=== PATIENT | female | born 1995 | race Two or more races ===

== ENCOUNTER 2016-11-19 11:04 | Emergency (ER) | payer BC ==
[2016-11-19 11:59] LABS: BACTERIA, URINE RARE /hpf; BLOOD, URINE NEG (NEG); COMMENT (UR) CULT NOT INDICATED; CULTURE IF INDICATED CULT NOT INDICATED; GLUCOSE,URINE NEG (NEG); KETONE, URINE NEG (NEG); MUCUS URINE FEW /lpf (OCC); NITRITE,URINE NEG (NEG); PH, URINE 6.5 (5.0-8.5); SQUAMOUS EPITHELIAL CELL URINE 3 /hpf (0-5); URINE COLOR YELLOW (YELLW/STRAW)
--- NOTE | 2016-11-19 11:59 | PD ---
HPI Chief Complaint Abdominal pain Date Seen: Nov 19, 2016 Time Seen: 11:45 Travel History International Travel<30 Days: No Contact w/Intl Traveler<30Days: No Known Affected Area: No History of Present Illness HPI 21-year-old primigravida at 26 weeks and 2 days gestation with an EDC of February 25. She reports having abdominal pain starting last night which has today caused her to seek evaluation. She describes this as a lightning bolt pain in the area of her belly button extending down towards her pubic bone. She denies any vaginal discharge or bleeding and no leakage of fluid. She has no dysuria hematuria or frequency. No diarrhea, constipation, nausea or vomiting. She has not noticed decreasing pain with hydration orally. She has not found anything that makes the pain worse. Weeks Gestation: 26 Para: 0 : 1 Miscarriage: 0 : 0 History Past Medical History Narrative Medical History of asthma for which she takes albuterol and Symbicort Obstetric History Obstetric History Primigravida with an uncomplicated so far. She receives care from Dr. Champion. Past Surgical History Narrative Surgical Tonsillectomy Family History Family History: Negative Social History Alcohol Use: No Tobacco Use: No Substance Abuse: No Review of Systems Except as stated in HPI: all other systems reviewed are Neg Physical Exam Narrative GENERAL: Well-nourished, well-developed patient. SKIN: Warm and dry. HEAD: Normocephalic and atraumatic. EYES: No scleral icterus. No injection or drainage. ENT: No nasal drainage noted. Mucous membranes pink. Airway patent. NECK: Supple, trachea midline. No JVD. CARDIOVASCULAR: Regular rate and rhythm without murmurs, gallops, or rubs. RESPIRATORY: Breath sounds equal bilaterally. No accessory muscle use. ABDOMEN/GI: Abdomen soft, non-tender, bowel sounds present, no rebound, no guarding Gravid to [-] weeks size Fundal Height: [26-] GENITOURINARY: External Genitalia: intact and normal in appearance BUS glands: [-Negative] Cervix: [-] Dilatation: [Closed-] Effacement: [-Long] Station: [High-] Presentation: [-] Membranes: [intact ] Uterine Contractions: [-Every 3 mild] FHT's: Category: [1-] Baseline: [-] Reactive: [-Yes] Variability: [-] Decels: [-] EXTREMITIES: No cyanosis or edema. BACK: Nontender without obvious deformity. No CVA tenderness. NEUROLOGICAL: Awake and alert. Motor and sensory grossly within normal limits. Five out of 5 muscle strength in all muscle groups. Normal speech. Data Data Vital Signs Reviewed: Yes Orders Orders Vital Signs (Adult) .ON ADMISSION (11/19/16 11:46) ^ Labor Status (11/19/16 11:46) Urinalysis - C+S If Indicated (11/19/16 11:46) Fibronectin (11/19/16 11:46) MDM Medical Record Reviewed: Yes Narrative Course / MDM Assessment: 26+ week primigravida with abdominal pain and mild uterine contractions. Plan: fibronectin, urinalysis, by mouth hydration Addendum: Her fibronectin was negative and urinalysis was not indicated for culture. Her uterine irritability diminished with by mouth hydration and she was discharged home in stable condition. Diagnosis Diagnosis: Primary Impression: 26 weeks gestation of Additional Impression: Irregular uterine contractions Disposition: DISCHARGE HOME Condition: Good Dawit Escobar MD Nov 19, 2016 11:59
== END 2016-11-19 12:53 | disposition home or self-care (01) ==
LOC: HOBED 11:04
DX: O26.892 Other specified pregnancy related conditions, second trimester (principal); R10.9 Unspecified abdominal pain; Z3A.26 26 weeks gestation of pregnancy
CPT/HCPCS: 81001; 82731; 99283

== ENCOUNTER 2017-02-01 12:34 | Inpatient (IN) | payer BC ==
[2017-02-01] VITALS (74 sets, daily range): BP systolic 108–145; BP diastolic 62–92; PULSE 61–117; RESP 18; TEMP 98.2
[~2017-02-01] VITALS: Ht 160 cm; Wt 79.0 kg
[2017-02-01] MEDS: LACTATED RINGER'S 1000 ML INJ 1,000 ML IV SCH ×2 (14:10→20:19)
--- NOTE | 2017-02-01 14:19 | PD ---
History of Present Illness History of Present Illness OB NST report Indications: IUP at 36 weeks, elevated blood pressure heart rate baseline in the 120s with moderate long-term variability, good accelerations, and no decelerations noted. The heart tones are reassuring and appropriate for gestational age with a reactive NST and category 1 heart rate tracing. Follow-up: We will admit and continue monitoring Final diagnosis: IUP at 36 weeks, suspected preeclampsia. Izabella Wetzel MD Feb 01, 2017 14:19
--- NOTE | 2017-02-01 14:20 | PD ---
HPI Chief Complaint Elevated blood pressure in the office Travel History International Travel<30 Days: No Contact w/Intl Traveler<30Days: No Known Affected Area: No History of Present Illness HPI 21-year-old , IUP at 36.5 care, complicated by asthma The patient presents for blood pressure evaluation reporting elevated blood pressures in the office, although she does not know what her office blood pressure was. She reports she has had intermittent visual changes with spots over the past 2 months. She denies any headache or visual changes at this time. She denies any right upper quadrant or epigastric pain. She reports some irregular menstrual type cramps but has not been timing the frequency. She denies any leaking of fluid or vaginal bleeding. She reports good movement. Weeks Gestation: 36 Para: 0 : 1 History Past Medical History Narrative Medical Asthma Obstetric History Obstetric History Past Surgical History Narrative Surgical Tonsillectomy, wisdom teeth extraction Family History Narrative Family History Patient is adopted Social History Alcohol Use: No Tobacco Use: No Substance Abuse: No Allergies-Medications (Allergen,Severity, Reaction): Coded Allergies: No Known Allergies (Verified Allergy, Unknown, 02/01/17) Home Meds Reported Medications Budesonide-Formoterol Inh (Symbicort Inh) 80-4.5 Mcg/Act Aero, 2 PUFF INH Q12HR for Asthma Management, #1 INHALER 0 Refills 02/01/17 Montelukast (Singulair) 4 Mg Chew, 4 MG CHEW HS, #30 TAB 0 Refills 02/01/17 Albuterol 18 GM Inh (Ventolin Hfa 18 GM Inh) 90 Mcg/Act Aer, 2 PUFF INH Q6H Y for SHORTNESS OF BREATH, #1 INHALER 0 Refills 02/01/17 Vit-Iron Carbonyl ( Plus Iron 29-1 mg) 29 Mg Iron-1 Mg Tab, 1 TAB PO DAILY for Nutritional Supplement, #30 TAB 0 Refills 02/01/17 Review of Systems Except as stated in HPI: all other systems reviewed are Neg General / Constitutional: No: Fever, Weight Gain, Weight Loss, Chills, Other Eyes: Visual changes (the patient reports seeing spots over the past 2 months, although she denies any at this time), No: Diploplia, Blurred Vision, Pain, Photophobia, Other HENT: No: Headaches, Vertigo, Dental Difficulties, Lightheadedness, Other Cardiovascular: No: Irregular Rhythm, Chest Pain or Discomfort, Palpitations, Tachycardia, Syncope, Varicosities, Edema, Cyanosis, Other Respiratory: No: Cough, Short of Breath, Wheezing, Other Gastrointestinal: No: Nausea, Vomiting, Diarrhea, Abdominal Pain, Hematemesis, Hematochezia, Constipation, Changes in Bowel Habits, Indigestion, Loss of Appetite, Other Genitourinary: No: Urgency, Frequency, Dysuria, Nocturia, Hematuria, Decreased Urinary Output, Oliguria, Hesitancy, Dribbling, Incontinence, Pelvic Pain, Dyspareunia, Discharge, Menorrhagia, Vaginal Bleeding, Other Musculoskeletal: No: Limited ROM, Weakness, Cramping, Edema, Pain, Other Skin: No Rash, No Itching, No Dryness, No Lumps, No Change in Pigmentation, No Change in Nails, No Alopecia, No Lesions, No Breast Lumps, No Breast Tenderness , No Breast Swelling, No Other Neurologic: No: Weakness, Dizziness, Syncope, Focal Abnormalities, Coordination Problem, Headache, Slurred Speech, Seizures, Other Psychiatric: No: Anxiety, Depression, Suicidal Ideations, Disorder of Thought, Mood Disorder, Substance Abuse, Homicidal Ideation, Other Endocrine: No: Heat Intolerance, Cold Intolerance, Polydipsia, Polyuria, Other Hematologic/Lymphatic: No Easy Bruising, No Lymph Node Enlargement, No Other Physical Exam Narrative GENERAL: Well-nourished, well-developed patient. SKIN: Warm and dry. HEAD: Normocephalic and atraumatic. EYES: No scleral icterus. No injection or drainage. ENT: No nasal drainage noted. Mucous membranes pink. Airway patent. NECK: Supple, trachea midline. No JVD. CARDIOVASCULAR: Regular rate and rhythm without murmurs, gallops, or rubs. RESPIRATORY: Breath sounds equal bilaterally. No accessory muscle use. BREASTS: deferred ABDOMEN/GI: Abdomen soft, non-tender, bowel sounds present, no rebound, no guarding Gravid GENITOURINARY: External Genitalia: intact and normal in appearance. Normal BUS glands. Physiologic discharge noted. Grossly normal rugae. No cervical or vaginal masses appreciated. SVE 1/80/-2. Uterine contractions every 2-3 minutes were noted but the patient is not feeling all of these FHT's: heart tones are in the 120s with moderate long-term variability, good accelerations, no decelerations noted. The patient is a reactive NST and a category 1 heart rate tracing EXTREMITIES: No cyanosis or edema. BACK: Nontender without obvious deformity. NEUROLOGICAL: Awake and alert. Motor and sensory grossly within normal limits. Five out of 5 muscle strength in all muscle groups. Normal speech. DTR are 2+ with one beat of clonus. Musculoskeletal: Grossly normal range of motion, gait, muscle strength Psychiatric: Grossly normal memory and affect Data Data Orders Orders Vital Signs (Adult) .ON ADMISSION (02/01/17 14:16) ^ Labor Status (02/01/17 14:16) Urinalysis - C+S If Indicated (02/01/17 14:16) Diet Liquid (02/01/17 Dinner) Cbc No Diff, Includes Plts (02/01/17 14:16) Comprehensive Metabolic Panel (02/01/17 14:16) Uric Acid (02/01/17 14:16) Protein Creat Ratio, Random Ur (02/01/17 14:16) MDM Plan Assessment/plan: 1. IUP at 36.5 2. Suspected preeclampsia: Patient with labile blood pressures, but with platelet count of 146,000, 100 mg protein in her urine, and a protein creatinine ratio of 1.56. The patient was discussed with Dr. Champion including laboratory findings and one beat of clonus; Dr. Champion would like to admit the patient for 24-hour urine and further observation and evaluation with possible induction of labor to follow. Discussed the plan for admission, further evaluation/observation, and possible induction with the patient. Answered all the patient's questions and she is aware that her care will be transferred to Dr. Champion. 3. well-being: Reassuring testing with reactive NST and a category 1 heart rate tracing. heart rate tracing is reassuring and appropriate for gestational age. We will continue with continuous monitoring. 4. Maternal asthma: No issues 5. Prematurity: Will Rx Celestone to help with lung maturity Izabella Wetzel MD Feb 01, 2017 14:20
[2017-02-01 14:34] LABS: HEMATOCRIT 31.8 % (35.0-46.0); MEAN CELL VOLUME 74.1 FL (80.0-100.0); MEAN CORPUSCULAR HEMOGLOBIN 25.2 PG (27.0-34.0); MEAN CORPUSCULAR HGB CONC 33.9 % (32.0-36.0); PLATELET COUNT 146 TH/MM3 (150-450); RED CELL DISTRIBUTION WIDTH 14.9 % (11.6-17.2); REVIEW FLAG FINAL; WHITE BLOOD COUNT 12.6 TH/MM3 (4.0-11.0)
[2017-02-01] MEDS ORDERED: LACTATED RINGER'S 1000 ML INJ 500 ML IV ONE (14:36)
[2017-02-01 14:45] LABS: BACTERIA, URINE RARE /hpf; BLOOD, URINE TRACE (NEG); GLUCOSE,URINE NEG (NEG); HYALINE CAST, URINE 1 /lpf (RARE); KETONE, URINE NEG (NEG); MUCUS URINE FEW /lpf (OCC); NITRITE,URINE NEG (NEG); SQUAMOUS EPITHELIAL CELL URINE 2 /hpf (0-5); URINE COLOR YELLOW (YELLW/STRAW)
[2017-02-01 14:46] LABS: COMMENT (UR) CULT NOT INDICATED; CULTURE IF INDICATED CULT NOT INDICATED
[2017-02-01 14:53] LABS: ANION GAP 11 MEQ/L (5-15); AST (GOT) 13 U/L (15-37); BICARBONATE 20.2 MEQ/L (21.0-32.0); BLOOD UREA NITROGEN 7 MG/DL (7-18); CHLORIDE 107 MEQ/L (98-107); GLOMERULAR FILTRATION RATE 115 ML/MIN (>89); POTASSIUM 3.9 MEQ/L (3.5-5.1); SODIUM (NA) 138 MEQ/L (136-145)
[2017-02-01 14:55] LABS: ALT (GPT) 12 U/L (10-53)
[2017-02-01 14:56] LABS: ALKALINE PHOSPHATASE 175 U/L (45-117); TOTAL BILIRUBIN ADULT 0.4 MG/DL (0.2-1.0)
[2017-02-01] MEDS ORDERED: SODIUM CHLORIDE 0.9% FLUSH 10 ML FLUSH IV FLUSH PRN (15:15)
[2017-02-01] MEDS ORDERED: ZOLPIDEM TARTRATE 5 MG TAB PO PRN (15:15)
[2017-02-01] MEDS ORDERED: ACETAMINOPHEN 325 MG TAB PO PRN (15:15)
[2017-02-01] MEDS ORDERED: ONDANSETRON ODT 4 MG TAB PO PRN (15:15)
[2017-02-01] MEDS ORDERED: ALUMINUM/MAGNESIUM/SIMETH 30 ML CUP PO PRN (15:15)
[2017-02-01] MEDS: BETAMETHASONE SOD PHOS/ACETATE SUSP 30 MG/5 ML VIAL IM SCH (15:52)
[2017-02-01] MEDS ORDERED: PREN29TA PO (16:00)
[2017-02-01] MEDS ORDERED: MONT4CHW2 CHEW (16:03)
[2017-02-01] MEDS ORDERED: VENTAER INH (16:03)
[2017-02-01] MEDS ORDERED: SYMB80AE INH (16:03)
--- NOTE | 2017-02-01 16:58 | HHI.HP ---
History & Physical H&P Patient Name: Sarai Kenyon Unit Number: [id number] Date of : 1995 Patient Status: Admitted Inpatient Attending Doctor: Asher Champion MD HPI HPI Chief Complaint Elevated blood pressure in the office Travel History International Travel<30 Days: No Contact w/Intl Traveler<30Days: No Known Affected Area: No History of Present Illness HPI 21-year-old , IUP at 36.5 care, complicated by asthma The patient presents for blood pressure evaluation reporting elevated blood pressures in the office, although she does not know what her office blood pressure was. She reports she has had intermittent visual changes with spots over the past 2 months. She denies any headache or visual changes at this time. She denies any right upper quadrant or epigastric pain. She reports some irregular menstrual type cramps but has not been timing the frequency. She denies any leaking of fluid or vaginal bleeding. She reports good movement. Weeks Gestation: 36 Para: 0 : 1 History (Limited) History Past Medical History Narrative Medical Asthma Obstetric History Obstetric History Past Surgical History Narrative Surgical Tonsillectomy, wisdom teeth extraction Family History Narrative Family History Patient is adopted Social History Alcohol Use: No Tobacco Use: No Substance Abuse: No Allergies-Medications Allergies-Medications (Allergen,Severity, Reaction): Coded Allergies: No Known Allergies (Verified Allergy, Unknown, 02/01/17) Home Meds Reported Medications Budesonide-Formoterol Inh (Symbicort Inh) 80-4.5 Mcg/Act Aero, 2 PUFF INH Q12HR for Asthma Management, #1 INHALER 0 Refills 02/01/17 Montelukast (Singulair) 4 Mg Chew, 4 MG CHEW HS, #30 TAB 0 Refills 02/01/17 Albuterol 18 GM Inh (Ventolin Hfa 18 GM Inh) 90 Mcg/Act Aer, 2 PUFF INH Q6H Y for SHORTNESS OF BREATH, #1 INHALER 0 Refills 02/01/17 Vit-Iron Carbonyl ( Plus Iron 29-1 mg) 29 Mg Iron-1 Mg Tab, 1 TAB PO DAILY for Nutritional Supplement, #30 TAB 0 Refills 02/01/17 ROS Review of Systems Except as stated in HPI: all other systems reviewed are Neg General / Constitutional: No: Fever, Weight Gain, Weight Loss, Chills, Other Eyes: Visual changes (the patient reports seeing spots over the past 2 months, although she denies any at this time), No: Diploplia, Blurred Vision, Pain, Photophobia, Other HENT: No: Headaches, Vertigo, Dental Difficulties, Lightheadedness, Other Cardiovascular: No: Irregular Rhythm, Chest Pain or Discomfort, Palpitations, Tachycardia, Syncope, Varicosities, Edema, Cyanosis, Other Respiratory: No: Cough, Short of Breath, Wheezing, Other Gastrointestinal: No: Nausea, Vomiting, Diarrhea, Abdominal Pain, Hematemesis, Hematochezia, Constipation, Changes in Bowel Habits, Indigestion, Loss of Appetite, Other Genitourinary: No: Urgency, Frequency, Dysuria, Nocturia, Hematuria, Decreased Urinary Output, Oliguria, Hesitancy, Dribbling, Incontinence, Pelvic Pain, Dyspareunia, Discharge, Menorrhagia, Vaginal Bleeding, Other Musculoskeletal: No: Limited ROM, Weakness, Cramping, Edema, Pain, Other Skin: No Rash, No Itching, No Dryness, No Lumps, No Change in Pigmentation, No Change in Nails, No Alopecia, No Lesions, No Breast Lumps, No Breast Tenderness , No Breast Swelling, No Other Neurologic: No: Weakness, Dizziness, Syncope, Focal Abnormalities, Coordination Problem, Headache, Slurred Speech, Seizures, Other Psychiatric: No: Anxiety, Depression, Suicidal Ideations, Disorder of Thought, Mood Disorder, Substance Abuse, Homicidal Ideation, Other Endocrine: No: Heat Intolerance, Cold Intolerance, Polydipsia, Polyuria, Other Hematologic/Lymphatic: No Easy Bruising, No Lymph Node Enlargement, No Other Physical Exam Physical Exam Narrative GENERAL: Well-nourished, well-developed patient. SKIN: Warm and dry. HEAD: Normocephalic and atraumatic. EYES: No scleral icterus. No injection or drainage. ENT: No nasal drainage noted. Mucous membranes pink. Airway patent. NECK: Supple, trachea midline. No JVD. CARDIOVASCULAR: Regular rate and rhythm without murmurs, gallops, or rubs. RESPIRATORY: Breath sounds equal bilaterally. No accessory muscle use. BREASTS: deferred ABDOMEN/GI: Abdomen soft, non-tender, bowel sounds present, no rebound, no guarding Gravid GENITOURINARY: External Genitalia: intact and normal in appearance. Normal BUS glands. Physiologic discharge noted. Grossly normal rugae. No cervical or vaginal masses appreciated. SVE 1/80/-2. Uterine contractions every 2-3 minutes were noted but the patient is not feeling all of these FHT's: heart tones are in the 120s with moderate long-term variability, good accelerations, no decelerations noted. The patient is a reactive NST and a category 1 heart rate tracing EXTREMITIES: No cyanosis or edema. BACK: Nontender without obvious deformity. NEUROLOGICAL: Awake and alert. Motor and sensory grossly within normal limits. Five out of 5 muscle strength in all muscle groups. Normal speech. DTR are 2+ with one beat of clonus. Musculoskeletal: Grossly normal range of motion, gait, muscle strength Psychiatric: Grossly normal memory and affect Data Data Data Orders Orders Vital Signs (Adult) .ON ADMISSION (02/01/17 14:16) ^ Labor Status (02/01/17 14:16) Urinalysis - C+S If Indicated (02/01/17 14:16) Diet Liquid (02/01/17 Dinner) Cbc No Diff, Includes Plts (02/01/17 14:16) Comprehensive Metabolic Panel (02/01/17 14:16) Uric Acid (02/01/17 14:16) Protein Creat Ratio, Random Ur (02/01/17 14:16) MDM [facility] Plan Assessment/plan: 1. IUP at 36.5 2. Suspected preeclampsia: Patient with labile blood pressures, but with platelet count of 146,000, 100 mg protein in her urine, and a protein creatinine ratio of 1.56. The patient was discussed with Dr. Champion including laboratory findings and one beat of clonus; Dr. Champion would like to admit the patient for 24-hour urine and further observation and evaluation with possible induction of labor to follow. Discussed the plan for admission, further evaluation/observation, and possible induction with the patient. Answered all the patient's questions and she is aware that her care will be transferred to Dr. Champion. 3. well-being: Reassuring testing with reactive NST and a category 1 heart rate tracing. heart rate tracing is reassuring and appropriate for gestational age. We will continue with continuous monitoring. 4. Maternal asthma: No issues 5. Prematurity: Will Rx Celestone to help with lung maturity Izabella Wetzel MD Feb 01, 2017 14:20 Izabella Wetzel MD Feb 01, 2017 16:58
[2017-02-01] MEDS ORDERED: SODIUM CHLORIDE 0.9% FLUSH 10 ML FLUSH IV FLUSH SCH (21:00)
[2017-02-02] VITALS (139 sets, daily range): BP systolic 110–155; BP diastolic 58–95; PULSE 60–175; RESP 17–20; TEMP 97.7–98.5; O2SAT 97–100
[2017-02-02 06:01] LABS: AUTOMATED NEUTROPHIL # 14.7 TH/MM3 (1.8-7.7); BASOPHIL % 0.1 % (0.0-2.0); HEMO FLAGS DIFF FINAL; LYMPH % 9.8 % (9.0-44.0); LYMPHOCYTE # 1.7 TH/MM3 (1.0-4.8); MEAN CELL VOLUME 74.4 FL (80.0-100.0); MEAN CORPUSCULAR HEMOGLOBIN 24.2 PG (27.0-34.0); MEAN CORPUSCULAR HGB CONC 32.5 % (32.0-36.0); MONO % 4.1 % (0.0-8.0); PLATELET COUNT 132 TH/MM3 (150-450); RED CELL DISTRIBUTION WIDTH 14.8 % (11.6-17.2); WHITE BLOOD COUNT 17.1 TH/MM3 (4.0-11.0)
[2017-02-02 06:26] LABS: ALT (GPT) 18 U/L (10-53); ANION GAP 10 MEQ/L (5-15); AST (GOT) 9 U/L (15-37); BICARBONATE 20.4 MEQ/L (21.0-32.0); BLOOD UREA NITROGEN 10 MG/DL (7-18); CHLORIDE 109 MEQ/L (98-107); GLOMERULAR FILTRATION RATE 129 ML/MIN (>89); POTASSIUM 4.2 MEQ/L (3.5-5.1); SODIUM (NA) 139 MEQ/L (136-145); URIC ACID 5.2 MG/DL (2.6-6.0)
[2017-02-02 06:28] LABS: ALKALINE PHOSPHATASE 161 U/L (45-117); TOTAL BILIRUBIN ADULT 0.3 MG/DL (0.2-1.0)
[2017-02-02] MEDS ORDERED: MULTIVIT/MIN/PREN/FOL AC/IRON PRENATAL TAB PO SCH (09:00)
[2017-02-02] MEDS ORDERED: DOCUSATE SODIUM 100 MG CAP PO SCH (09:00)
[2017-02-02] MEDS ORDERED: OXYTOCIN 30 UNITS/NS 500ML PREMIX IV SCH (09:30)
--- NOTE | 2017-02-02 10:02 | MB ---
cc: RAFA MALAGON JOHN DATE OF CONSULTATION: 02/02/2017 DATE OF : 1995 REASON FOR CONSULTATION 1. Intrauterine at 36 and 6/7 weeks. 2. Elevated blood pressures. 3. heart rate decelerations on heart rate monitoring. 4. Intrauterine growth restriction with an estimated weight of 2268 [address] that [address] the fetus in the 4th percentile with an abdominal circumference below the 5th percentile. 5. Oligohydramnios. HISTORY OF PRESENT ILLNESS This is the case of a 21-year-old primigravid female, currently at 36 and 6/7 weeks gestation with an estimated due date of 02/24/2017. The patient was admitted on 02/01/2017, sent from Dr. Champion's office due to elevated blood pressures. The patient was admitted to Labor & Delivery for further evaluation and management. LABORATORY Blood work collected on 02/02/2017 showed a hemoglobin of 10.4, hematocrit 32, platelet count 132,000, MCV 74.4. Urinalysis showed a specific gravity of 1.025, protein 100, negative ketones, negative blood, bacteria rare, protein/creatinine ratio 1.56, elevated. Comprehensive metabolic profile: Electrolytes within normal limits. Serum creatinine 0.58. Liver function tests, AST and ALT within normal limits. BUN 10. IMAGING Ultrasound today: Single viable fetus in cephalic presentation. Amniotic fluid index 3.8 cm, compatible with oligohydramnios with the largest single vertical pocket measuring 1.9 cm. Estimated weight of 2268 grams (4 pounds 15 ounces). Anatomic survey limited, but no gross structural anomalies. UMBILICAL ARTERY DOPPLER S/D ratio 2.69, MCA PI 2.07. PAST MEDICAL HISTORY Significant for asthma for which the patient takes Singulair and an inhaler. Denies history of diabetes, liver, kidney or thyroid problems. Denies history of hypertension, blood transfusions or any particular blood disorders. FAMILY HISTORY Noncontributory. OBSTETRICAL HISTORY The patient is primigravid. The patient denies any history of elevated blood pressure in the past and she relays that her blood pressure has been uneventful. records are not available for review. PHYSICAL EXAMINATION GENERAL: The patient is alert and oriented, in no acute distress. NECK: No jugular venous distention. No masses. HEART: Regular rhythm. No murmur or gallops. LUNGS: Clear. No rales or rhonchi. ABDOMEN: Gravid, soft, depressible, nontender. No epigastric or right upper quadrant tenderness. EXTREMITIES: Grade 2 pretibial edema. No calf tenderness. Patellar reflex 3+ with clonus. Ulnar reflex 3+. PELVIC: Deferred. To be done by Dr. Champion. IMPRESSION A 21-year-old primigravid female, currently at 36 and 6/7 weeks gestation with diameter compatible with intrauterine growth restriction and oligohydramnios. Also, clinical findings of hyperreflexia in the presence of elevated blood pressures is compatible with preeclampsia. At the time of my assessment of the patient with repeat patellar reflexes, Dr. Champion was present in the room. RECOMMENDATIONS 1. Delivery discussed with Dr. Champion. 2. Initiate seizure prophylaxis with magnesium sulfate as per protocol. 3. Close intake and output. 4. Repeat preeclamptic blood work every 8 hours. 5. In the event of severely elevated blood pressure with systolics in the 160s, diastolics at or higher than 110, initiate intravenous labetalol as per protocol. 6. complete a 24 hour intravenous magnesium sulfate for seizure prophylaxis. The findings and recommendations were also discussed with Mrs. Kenyon. She was allowed to ask questions that were answered to her satisfaction. She expressed understanding and agrees with the current plan of management and recommendations. Total floor unit time with this patient was about 40 minutes. 50% of the time was in [id number] counseling, chart review and coordination of the patient's management and care. Thank you for allowing [facility] to participate in the care of your patient. Rafa WRIGHT/EMILY /9:16 AM /9:31 AM
[2017-02-02] MEDS ORDERED: LACTATED RINGER'S 1000 ML INJ 1,000 ML IV SCH ×2 (10:45→20:00)
[2017-02-02] MEDS ORDERED: MAGNESIUM SULFATE 40 GM PREMIX 1,000 ML IV SCH (10:45)
[2017-02-02] MEDS ORDERED: MAGNESIUM SULFATE 4GRAM PRMIX-LOAD DOSE IV ONE (10:45)
[2017-02-02] MEDS ORDERED: CALCIUM GLUCONATE 10% 1 GM/10 ML VIAL IV PUSH PRN ×2 (10:45→22:00)
[2017-02-02] MEDS: MAGNESIUM SULFATE 40 GM PREMIX 1,000 ML IV SCH (11:55)
--- NOTE | 2017-02-02 12:35 | HHI.PR ---
Addendum to Inpatient Note Addendum Reason: Additional Documentation Additional Information S: Patient complains of a area of warmth, erythema, pain over the right anterior thigh. O: AFVSS Skin: There is an area of mild warmth, mild erythema, minimally TTP over the right anterior thigh. A/P: Most likely just some skin irritation. On exam, low concern for cellulitis. If it is cellulitis, it will become more red, erythematous, tender/ painful in the near future. Given that she is , there is concern for DVT. -ordered venous doppler US of right leg -continue to monitor Kirill Garcia MD R2 Feb 02, 2017 12:35
--- NOTE | 2017-02-02 13:45 | RADRPT ---
EXAM DATE/TIME: 02/02/2017 13:11 [place] COMPARISON: No previous studies available for comparison. INDICATIONS : Right leg pain and redness. MEDICAL HISTORY : 36 weeks . SURGICAL HISTORY : Tonsillectomy. ENCOUNTER: Initial ACUITY: 1 day PAIN SCORE: 0/10 LOCATION: Right leg. TECHNIQUE: Venous ultrasound of the leg was performed from the inguinal ligament to the proximal calf. Real-kathia e, color Doppler and spectral tracing, compression and augmentation techniques were used. FINDINGS: There is normal compressibility of the deep venous system from the inguinal region to the proximal ca lf. No echogenic clot is seen in the lumen of the common femoral, femoral, popliteal, and posterior tibial veins. There is a normal response of the venous system to proximal and distal augmentation an d respiration. CONCLUSION: 1. No sonographic evidence for right lower extremity DVT. Jae Bernard MD on February 02, 2017 at 13:43 Board Certified Radiologist. This report was verified electronically.
[2017-02-02] MEDS: BETAMETHASONE SOD PHOS/ACETATE SUSP 30 MG/5 ML VIAL IM SCH (16:00)
[2017-02-02] MEDS ORDERED: LIDOCAINE HCL 1% 50 ML VIAL I-DERMAL PRN (16:15)
[2017-02-02] MEDS ORDERED: ONDANSETRON HCL 4 MG/2 ML VIAL ONE (18:02)
[2017-02-02] MEDS ORDERED: LACTATED RINGER'S 1000 ML IV ONE (19:15)
[2017-02-02] MEDS ORDERED: ceFAZolin 1,000 MG/NS 100 ML IV SCH ×2 (19:15)
[2017-02-02] MEDS ORDERED: CITRIC ACID-SODIUM CITRATE LIQ 30 ML UDC PO SCH ×2 (19:15→21:00)
[2017-02-02] MEDS ORDERED: LACTATED RINGER'S 1000 ML IV SCH (19:15)
[2017-02-02] MEDS ORDERED: LACTATED RINGER'S 1000 ML INJ 1,000 ML IV ONE (19:30)
[2017-02-02] MEDS ORDERED: ACETAMINOPHEN 1000 MG/100 ML 100 ML IV ONE ×2 (19:39→22:00)
[2017-02-02] MEDS ORDERED: OXYTOCIN 10 UNIT/ML AMP ONE (20:55)
[2017-02-02] MEDS ORDERED: DEXTROSE (INFANT/PEDS) GEL 2.5 ML/GM (40%) TUBE ONE (21:47)
[2017-02-02] MEDS ORDERED: OXYTOCIN 30 UNITS-500ML PREMIX 500 ML IV ONE ×2 (22:00)
[2017-02-02] MEDS ORDERED: ONDANSETRON HCL 4 MG/2 ML VIAL IV PUSH PRN (22:00)
[2017-02-02] MEDS ORDERED: SODIUM CHLORIDE 0.9% FLUSH 10 ML FLUSH IV FLUSH PRN (22:00)
[2017-02-02] MEDS ORDERED: NIFEdipine 10 MG CAP PO PRN (22:00)
[2017-02-02] MEDS ORDERED: ZOLPIDEM TARTRATE 5 MG TAB PO PRN (22:00)
[2017-02-02] MEDS ORDERED: SODIUM CHLORIDE 0.9% FLUSH 5 ML FLUSH IV FLUSH PRN (22:00)
[2017-02-02] MEDS ORDERED: oxyCODONE/ACETAMINOPHEN 5 MG/325 MG TAB PO PRN ×2 (22:00)
[2017-02-02] MEDS ORDERED: OXYTOCIN 30 UNITS-500ML PREMIX 500 ML ONE (22:46)
[2017-02-02] MEDS: LACTATED RINGER'S 1000 ML INJ 1,000 ML IV SCH (23:28)
[2017-02-03] VITALS (32 sets, daily range): BP systolic 115–132; BP diastolic 50–79; PULSE 78–115; RESP 16–18; TEMP 97.9–98.4
[2017-02-03] MEDS ORDERED: diphenhydrAMINE HCL 50 MG/ML VIAL IV SCH (03:00)
[2017-02-03] MEDS ORDERED: diphenhydrAMINE HCL 50 MG/ML VIAL IV PRN (04:00)
[2017-02-03] MEDS ORDERED: OXYTOCIN 30 UNITS-500ML PREMIX 500 ML IV PRN (08:00)
--- NOTE | 2017-02-03 08:46 | HHI.OB ---
Subjective Post Operative Day: 1 Remarks s/p primary LTCD for arrest, induced for PreEclampsia 36 wks Objective Vitals/I&O Vital Signs Date Time Temp Pulse Resp B/P (MAP) Pulse Ox O2 Delivery O2 Flow Rate FiO2 02/03/17 08:00 93 126/72 (90) 02/03/17 08:00 17 02/03/17 07:00 78 130/75 (93) 02/03/17 06:01 18 02/03/17 06:00 83 123/69 (87) 02/03/17 05:57 98.1 18 02/03/17 05:56 89 129/79 (96) 02/03/17 05:22 18 02/03/17 04:00 94 119/50 (73) 02/03/17 03:07 18 02/03/17 03:00 93 127/65 (85) 02/03/17 02:07 17 02/03/17 02:00 89 129/67 (87) 02/03/17 01:49 97.9 18 02/03/17 01:00 93 126/61 (82) 02/03/17 00:39 18 02/03/17 00:00 115 132/68 (89) 02/02/17 23:25 18 02/02/17 23:24 127 137/69 (91) 02/02/17 22:52 98.2 02/02/17 22:45 113 17 121/66 (84) 97 02/02/17 22:15 107 18 97 02/02/17 22:14 120/58 (78) 02/02/17 22:09 115 20 129/58 (81) 98 02/02/17 21:39 98.5 121 18 125/71 (89) 98 02/02/17 20:00 101 02/02/17 19:55 108 02/02/17 19:50 115 02/02/17 19:48 98.4 18 02/02/17 19:40 103 02/02/17 19:35 102 02/02/17 19:30 103 02/02/17 19:25 105 02/02/17 19:20 109 02/02/17 19:15 99 02/02/17 19:10 101 02/02/17 19:05 99 02/02/17 19:00 105 02/02/17 18:55 98 11/22/17 18:50 103 02/02/17 18:45 102 02/02/17 18:45 102 02/02/17 18:40 103 02/02/17 18:40 104 02/02/17 18:35 102 02/02/17 18:35 102 02/02/17 18:30 97 128/83 (98) 02/02/17 18:30 98 02/02/17 18:30 107 02/02/17 18:11 18 02/02/17 18:05 106 02/02/17 18:05 107 02/02/17 18:00 106 02/02/17 18:00 98 02/02/17 18:00 102 132/80 (97) 02/02/17 17:39 98.0 18 02/02/17 17:30 101 02/02/17 17:30 101 120/80 (93) 02/02/17 17:30 18 02/02/17 17:30 103 02/02/17 17:15 18 02/02/17 17:10 94 02/02/17 17:10 93 02/02/17 17:05 94 02/02/17 17:05 94 02/02/17 17:00 98 121/75 (90) 02/02/17 17:00 99 02/02/17 17:00 98 02/02/17 16:30 96 02/02/17 16:30 98.4 96 130/77 (94) 02/02/17 16:30 97 02/02/17 16:30 18 02/02/17 16:25 97 02/02/17 16:25 97 02/02/17 16:20 98 02/02/17 16:20 97 02/02/17 16:15 105 02/02/17 16:15 109 02/02/17 16:00 106 02/02/17 16:00 108 135/83 (100) 02/02/17 16:00 175 02/02/17 16:00 18 02/02/17 15:55 99 02/02/17 15:55 99 02/02/17 15:50 99 02/02/17 15:50 100 02/02/17 15:45 98.0 02/02/17 15:45 18 02/02/17 15:45 104 02/02/17 15:45 103 02/02/17 15:10 115 02/02/17 15:10 112 02/02/17 15:05 106 02/02/17 15:05 108 02/02/17 15:00 18 02/02/17 15:00 108 02/02/17 15:00 97 155/84 (107) 02/02/17 15:00 100 02/02/17 14:55 99 02/02/17 14:55 96 02/02/17 14:50 89 02/02/17 14:50 89 02/02/17 14:45 93 02/02/17 14:45 92 02/02/17 14:40 92 98 02/02/17 14:40 92 02/02/17 14:35 95 02/02/17 14:35 94 100 02/02/17 14:30 97 02/02/17 14:30 96 02/02/17 14:30 95 119/64 (82) 99 02/02/17 14:30 98.3 18 02/02/17 14:25 99 02/02/17 14:25 98 02/02/17 14:20 92 02/02/17 14:20 92 02/02/17 14:15 95 02/02/17 14:15 95 02/02/17 14:10 96 02/02/17 14:10 95 02/02/17 14:05 104 02/02/17 14:05 105 02/02/17 14:00 95 02/02/17 14:00 100 02/02/17 14:00 97 137/82 (100) 02/02/17 14:00 18 02/02/17 13:55 94 02/02/17 13:55 97 02/02/17 13:50 92 02/02/17 13:45 93 02/02/17 13:45 90 02/02/17 13:40 97 02/02/17 13:40 95 02/02/17 13:35 102 02/02/17 13:35 103 02/02/17 13:30 98 02/02/17 13:30 113 02/02/17 13:30 18 02/02/17 13:30 114 126/87 (100) 02/02/17 13:25 113 02/02/17 13:25 111 02/02/17 13:20 116 02/02/17 13:20 116 02/02/17 13:15 105 02/02/17 13:15 107 02/02/17 13:10 106 02/02/17 13:10 104 02/02/17 13:05 95 02/02/17 13:05 95 02/02/17 13:00 94 02/02/17 13:00 95 110/71 (84) 02/02/17 13:00 108 02/02/17 12:55 89 02/02/17 12:55 89 02/02/17 12:50 90 02/02/17 12:50 94 02/02/17 12:45 84 02/02/17 12:45 84 02/02/17 12:40 86 02/02/17 12:40 85 02/02/17 12:35 87 02/02/17 12:35 88 02/02/17 12:30 95 124/73 (90) 02/02/17 12:30 96 02/02/17 12:30 98 02/02/17 12:25 101 02/02/17 12:25 99 02/02/17 12:20 93 02/02/17 12:20 93 02/02/17 12:15 97.7 20 02/02/17 12:15 95 02/02/17 12:15 96 02/02/17 12:10 88 02/02/17 12:10 86 02/02/17 12:05 88 02/02/17 12:05 88 02/02/17 12:00 86 02/02/17 12:00 89 125/77 (93) 02/02/17 12:00 89 02/02/17 11:55 92 02/02/17 11:50 89 02/02/17 11:45 95 02/02/17 11:45 93 02/02/17 11:40 89 02/02/17 11:40 94 02/02/17 11:35 96 02/02/17 11:35 95 02/02/17 11:30 18 02/02/17 11:30 93 02/02/17 11:30 87 02/02/17 11:30 92 133/88 (103) 02/02/17 11:25 97 126/79 (95) 02/02/17 11:25 100 02/02/17 11:25 98 02/02/17 11:20 96 131/85 (100) 02/02/17 11:20 98 02/02/17 11:15 94 122/86 (98) 02/02/17 11:15 99 02/02/17 11:10 115 02/02/17 11:10 96 122/95 (104) 02/02/17 11:05 97 129/77 (94) 02/02/17 11:05 91 02/02/17 11:00 91 02/02/17 11:00 101 122/76 (91) 02/02/17 11:00 18 02/02/17 10:55 88 126/80 (95) 02/02/17 10:55 90 02/02/17 10:50 86 02/02/17 10:45 88 02/02/17 10:05 71 02/02/17 10:05 72 136/91 (106) 02/02/17 10:00 83 02/02/17 09:54 18 02/02/17 09:50 78 02/02/17 09:45 73 02/02/17 09:40 73 02/02/17 09:35 86 02/02/17 09:30 76 02/02/17 09:25 81 02/02/17 09:20 84 02/02/17 09:15 95 119/81 (94) 02/02/17 09:15 98 Result Diagram: 02/02/17 0506 02/02/17 0506 Objective Remarks GENERAL: Well-nourished, well-developed patient. sitting up in bed, CARDIOVASCULAR: Regular rate and rhythm without murmurs, gallops, or rubs. RESPIRATORY: Breath sounds equal bilaterally. No accessory muscle use. ABDOMEN/GI: Abdomen soft, non-tender, bowel sounds present. Incision: bandage Clean, dry and intact. Fundus: Firm, non-tender at umbilicus. GENITOURINARY: Light bleeding. EXTREMITIES: No cyanosis or edema, non-tender, without signs of DVT. Medications and IVs Current Medications Medications (Trade) Dose Ordered Sig/Caitlyn Route Start Time Stop Time Status Last Admin Lactated Ringer's 1,000 ml @ 75 mls/hr [id number] IV 02/02/17 21:56 02/02/17 23:28 (NS Flush) 2 ml UNSCH PRN IV FLUSH 02/02/17 22:00 (NS Flush) 2 ml BID IV FLUSH 02/03/17 09:00 Magnesium Sulfate 1,000 ml @ 50 mls/hr Q20H IV 02/02/17 21:56 02/03/17 21:00 (Calcium Gluconate Inj) 1 gm UNSCH PRN IV PUSH 02/02/17 22:00 Oxytocin 500 ml @ 100 mls/hr UNSCH X1 PRN IV 02/03/17 08:00 02/04/17 07:59 (NS Flush) 2 ml BID IV FLUSH 02/03/17 09:00 (NS Flush) 2 ml UNSCH PRN IV FLUSH 02/02/17 22:00 (Mylicon Chew) 80 mg QID PRN PO 02/02/17 22:00 (Tylenol) 650 mg Q6H PRN PO 02/02/17 22:00 (Motrin) 600 mg Q6H PRN PO 02/02/17 22:00 (Percocet 5-325 Mg) 1 tab Q4H PRN PO 02/02/17 22:00 (Percocet 5-325 Mg) 2 tab Q4H PRN PO 02/02/17 22:00 Cefazolin Sodium 1000 mg/Sodium Chloride 100 ml @ 200 mls/hr Q8H IV 02/03/17 04:00 02/03/17 12:29 02/03/17 04:12 (Sheila-Colace) 2 tab Q12H PRN PO 02/02/17 22:00 (Ambien) 5 mg HS PRN PO 02/02/17 22:00 (M-M-R Ii Inj) 0.5 ml ONCE ONCE SQ 02/03/17 16:00 02/03/17 16:01 (Boostrix Inj) 0.5 ml ONCE ONCE IM 02/03/17 16:00 02/03/17 16:01 (Zofran Inj) 4 mg Q6H PRN IV PUSH 02/02/17 22:00 02/03/17 00:35 Assessment/Plan Problem List: (1) S/P primary low transverse ICD Codes: Z98.891 - History of uterine scar from previous surgery Status: Acute (2) Preeclampsia ICD Codes: O14.90 - Unspecified pre-eclampsia, unspecified trimester Status: Acute Qualifiers: Qualified Codes: O14.93 - Unspecified pre-eclampsia, third trimester Assessment and Plan POD#1 on magnesium sulfate for PreEclampsia, plan to d/c at 24h; BPs wnl today doing well, bandage in place d/c planning for Tuesday Discharge Planning routine Chana Villalobos MD Feb 03, 2017 08:46
[2017-02-03] MEDS: SODIUM CHLORIDE 0.9% FLUSH 10 ML FLUSH IV FLUSH SCH ×2 (09:00→21:23)
[2017-02-03] MEDS: SODIUM CHLORIDE 0.9% FLUSH 5 ML FLUSH IV FLUSH SCH ×2 (09:00→21:00)
[2017-02-03 10:39] LABS: HEMATOCRIT 23.8 % (35.0-46.0); MEAN CELL VOLUME 74.2 FL (80.0-100.0); MEAN CORPUSCULAR HEMOGLOBIN 24.2 PG (27.0-34.0); MEAN CORPUSCULAR HGB CONC 32.6 % (32.0-36.0); PLATELET COUNT 132 TH/MM3 (150-450); REVIEW FLAG FINAL; WHITE BLOOD COUNT 26.6 TH/MM3 (4.0-11.0)
[2017-02-03 11:17] LABS: URIC ACID 5.2 MG/DL (2.6-6.0)
[2017-02-03 11:18] LABS: INDIRECT BILIRUBIN 0.2 MG/DL (0.0-0.8); TOTAL BILIRUBIN ADULT 0.3 MG/DL (0.2-1.0)
[2017-02-03] MEDS: SIMETHICONE 80 MG CHEWABLE TAB PO PRN (13:58)
[2017-02-03] MEDS ORDERED: DIPHTH/TETANUS/ACEL PERTUSSIS (BOOSTER) 0.5 ML VIAL/PFS IM ONE (16:00)
[2017-02-03] MEDS ORDERED: MEASLES, MUMPS, RUBELLA VACCINE 0.5 ML VIAL SQ ONE (16:00)
[2017-02-03] MEDS: IBUPROFEN 600 MG TAB PO PRN ×2 (16:10→23:11)
[2017-02-03] MEDS: LACTATED RINGER'S 1000 ML INJ 1,000 ML IV SCH (17:31)
[2017-02-03] MEDS: MAGNESIUM SULFATE 40 GM PREMIX 1,000 ML IV SCH (22:26)
[2017-02-04] MEDS: SIMETHICONE 80 MG CHEWABLE TAB PO PRN ×2 (08:00→14:57)
[2017-02-04] MEDS: IBUPROFEN 600 MG TAB PO PRN ×3 (08:00→21:59)
[2017-02-04] MEDS: ACETAMINOPHEN 325 MG TAB PO PRN ×3 (08:00→21:59)
[2017-02-04] MEDS: DOCUSATE SODIUM 50 MG/SENNA 8.6 MG TAB PO PRN ×2 (08:00→21:59)
--- NOTE | 2017-02-04 08:06 | HHI.OB ---
Subjective Post Operative Day: 2 Objective Vitals/I&O Vital Signs Date Time Temp Pulse Resp B/P (MAP) Pulse Ox O2 Delivery O2 Flow Rate FiO2 02/03/17 23:00 98.4 93 16 120/71 (87) 02/03/17 23:00 98.0 02/03/17 23:00 98.4 02/03/17 21:27 98.0 02/03/17 19:00 83 124/75 (91) 02/03/17 18:54 18 02/03/17 18:06 92 121/73 (89) 02/03/17 17:50 17 02/03/17 17:00 17 02/03/17 17:00 82 123/69 (87) 02/03/17 16:00 17 02/03/17 16:00 87 115/51 (72) 02/03/17 15:00 93 123/74 (90) 02/03/17 15:00 16 02/03/17 14:00 17 02/03/17 13:49 92 132/79 (96) 02/03/17 13:00 99 16 125/74 (91) 02/03/17 12:00 97 17 121/55 (77) 02/03/17 11:00 91 18 121/69 (86) 02/03/17 10:00 17 02/03/17 10:00 91 115/59 (77) 02/03/17 09:01 107 122/70 (87) 02/03/17 08:55 18 Result Diagram: 02/03/17 0935 02/02/17 0506 Objective Remarks GENERAL: Well-nourished, well-developed patient. sitting up in bed, just ambulated to bathroom & voided CARDIOVASCULAR: Regular rate and rhythm without murmurs, gallops, or rubs. RESPIRATORY: Breath sounds equal bilaterally. No accessory muscle use. ABDOMEN/GI: Abdomen soft, non-tender, bowel sounds present. Incision: bandage Clean, dry and intact. Fundus: Firm, non-tender at umbilicus. GENITOURINARY: Light bleeding. EXTREMITIES: No cyanosis, non-tender, without signs of DVT. 1+ edema to ankles b /l, mild Medications and IVs Current Medications Medications (Trade) Dose Ordered Sig/Caitlyn Route Start Time Stop Time Status Last Admin Lactated Ringer's 1,000 ml @ 75 mls/hr [id number] IV 02/02/17 21:56 02/03/17 17:31 (NS Flush) 2 ml UNSCH PRN IV FLUSH 02/02/17 22:00 (NS Flush) 2 ml BID IV FLUSH 02/03/17 09:00 (Calcium Gluconate Inj) 1 gm UNSCH PRN IV PUSH 02/02/17 22:00 (NS Flush) 2 ml BID IV FLUSH 02/03/17 09:00 02/03/17 21:23 (NS Flush) 2 ml UNSCH PRN IV FLUSH 02/02/17 22:00 (Mylicon Chew) 80 mg QID PRN PO 02/02/17 22:00 02/04/17 08:00 (Tylenol) 650 mg Q6H PRN PO 02/02/17 22:00 02/04/17 08:00 (Motrin) 600 mg Q6H PRN PO 02/02/17 22:00 02/04/17 08:00 (Percocet 5-325 Mg) 1 tab Q4H PRN PO 02/02/17 22:00 (Percocet 5-325 Mg) 2 tab Q4H PRN PO 02/02/17 22:00 (Sheila-Colace) 2 tab Q12H PRN PO 02/02/17 22:00 02/04/17 08:00 (Ambien) 5 mg HS PRN PO 02/02/17 22:00 (Zofran Inj) 4 mg Q6H PRN IV PUSH 02/02/17 22:00 02/03/17 00:35 Assessment/Plan Problem List: (1) S/P primary low transverse ICD Codes: Z98.891 - History of uterine scar from previous surgery Status: Acute (2) Preeclampsia ICD Codes: O14.90 - Unspecified pre-eclampsia, unspecified trimester Status: Acute Qualifiers: Qualified Codes: O14.93 - Unspecified pre-eclampsia, third trimester Assessment and Plan POD#2 PreEclamptic s/p 24h magnesium sulfate ; BPs wnl today doing well, bandage in place shower, ambulate today d/c planning for Tuesday Discharge Planning routine Chana Villalobos MD Feb 04, 2017 08:06
[2017-02-04 16:00] VITALS: BP 120/69; PULSE 81; RESP 18; TEMP 98.6
[2017-02-04 20:20] VITALS: BP 127/74; PULSE 83; RESP 20; TEMP 98.2
[2017-02-05] MEDS: IBUPROFEN 600 MG TAB PO PRN (03:55)
[2017-02-05] MEDS: ACETAMINOPHEN 325 MG TAB PO PRN (03:56)
[2017-02-05 07:30] VITALS: BP 139/97; PULSE 78; RESP 18; TEMP 97.9
--- NOTE | 2017-02-05 11:30 | HHI.OB ---
Subjective Post Operative Day: 3 Remarks POD# #; Doing well, no c/o; No pain in LE. Good pain control. Objective Vitals/I&O Vital Signs Date Time Temp Pulse Resp B/P (MAP) Pulse Ox O2 Delivery O2 Flow Rate FiO2 02/05/17 07:30 97.9 78 18 139/97 (111) 02/04/17 20:20 98.2 83 20 127/74 (91) 02/04/17 16:00 98.6 81 18 120/69 (86) Result Diagram: 02/03/17 0935 02/02/17 0506 Objective Remarks GENERAL: Well-nourished, well-developed patient. sitting up in bed, just ambulated to bathroom & voided CARDIOVASCULAR: Regular rate and rhythm without murmurs, gallops, or rubs. RESPIRATORY: Breath sounds equal bilaterally. No accessory muscle use. ABDOMEN/GI: Abdomen soft, non-tender, bowel sounds present. Incision: bandage Clean, dry and intact. Fundus: Firm, non-tender at umbilicus. GENITOURINARY: Light bleeding. EXTREMITIES: No cyanosis, non-tender, without signs of DVT. 1+ edema to ankles b /l, mild Medications and IVs Current Medications Medications (Trade) Dose Ordered Sig/Caitlyn Route Start Time Stop Time Status Last Admin Lactated Ringer's 1,000 ml @ 75 mls/hr [id number] IV 02/02/17 21:56 02/03/17 17:31 (NS Flush) 2 ml UNSCH PRN IV FLUSH 02/02/17 22:00 (NS Flush) 2 ml BID IV FLUSH 02/03/17 09:00 (Calcium Gluconate Inj) 1 gm UNSCH PRN IV PUSH 02/02/17 22:00 (NS Flush) 2 ml BID IV FLUSH 02/03/17 09:00 02/03/17 21:23 (NS Flush) 2 ml UNSCH PRN IV FLUSH 02/02/17 22:00 (Mylicon Chew) 80 mg QID PRN PO 02/02/17 22:00 02/04/17 14:57 (Tylenol) 650 mg Q6H PRN PO 02/02/17 22:00 02/05/17 03:56 (Motrin) 600 mg Q6H PRN PO 02/02/17 22:00 02/05/17 03:55 (Percocet 5-325 Mg) 1 tab Q4H PRN PO 02/02/17 22:00 (Percocet 5-325 Mg) 2 tab Q4H PRN PO 02/02/17 22:00 (Sheila-Colace) 2 tab Q12H PRN PO 02/02/17 22:00 02/04/17 21:59 (Ambien) 5 mg HS PRN PO 02/02/17 22:00 (Zofran Inj) 4 mg Q6H PRN IV PUSH 02/02/17 22:00 02/03/17 00:35 Assessment/Plan Problem List: (1) S/P primary low transverse ICD Codes: Z98.891 - History of uterine scar from previous surgery Status: Acute (2) Preeclampsia ICD Codes: O14.90 - Unspecified pre-eclampsia, unspecified trimester Status: Acute Qualifiers: Qualified Codes: O14.93 - Unspecified pre-eclampsia, third trimester Assessment and Plan POD#3 PreEclamptic s/p 24h magnesium sulfate ; BPs stable today doing well, Incision intact, no drainage d/c planning for TODAY. RTO with Dr Champion in 1 week Discharge Planning routine Attending Attestation seen by Dawit Longoria MD Feb 05, 2017 11:30
[2017-02-05] MEDS ORDERED: IBUP-232 PO (11:36)
[2017-02-05] MEDS ORDERED: NORC5TAB PO (11:36)
--- NOTE | 2017-02-05 11:37 | HHI.DS ---
Admission Date Feb 01, 2017 at 15:23 Admitting Diagnosis Diagnosis: : Primary : Female Brief History 21-year-old , IUP at 36.5 care, complicated by asthma The patient presents for blood pressure evaluation reporting elevated blood pressures in the office, although she does not know what her office blood pressure was. She reports she has had intermittent visual changes with spots over the past 2 months. She denies any headache or visual changes at this time. She denies any right upper quadrant or epigastric pain. She reports some irregular menstrual type cramps but has not been timing the frequency. She denies any leaking of fluid or vaginal bleeding. She reports good movement. Pt Condition on Discharge: Good Discharge Disposition: Discharge Home Discharge Instructions Diet Instructions: As Tolerated, No Restrictions Activities You Can Perform: Shower Only-No Bath Activities to Avoid: Prolonged Standing, Strenuous Activity, Driving, Sexual Activity Dawit Sorto MD Feb 05, 2017 11:37
--- NOTE | 2017-02-08 15:14 | MP ---
cc: SHANELLE CHAMPION DATE OF SURGERY: 02/02/2017 PREOPERATIVE DIAGNOSIS 1. Failure to progress. 2. Severe preeclampsia. POSTOPERATIVE DIAGNOSIS 1. Failure to progress. 2. Severe preeclampsia. PROCEDURE Primary low transverse section. ANESTHESIA Spinal. SURGEON Asher Champion MD. FINDINGS The uterus was normal. The left tube and ovary were normal. The right tube had a distal hydrosalpinx and phimosis of the fimbria. The right ovary was normal. The cul-de-sacs were normal. The baby weighed 5 pounds 11 ounces with Apgars of 6 and 9. COMPLICATIONS None. COUNTS Correct. ESTIMATED BLOOD LOSS 600 cc. FLUIDS Crystalloids. CONDITION The patient tolerated the procedure well and went to the recovery room in good condition. PROCEDURE IN DETAIL The patient was taken to the operating room, identified by name band and verbally. She was given a spinal anesthetic. A Samano catheter was inserted. She was prepped and draped for section. A Pfannenstiel incision was taken down to the fascia. The fascia was taken off the rectus muscle by blunt and sharp dissection. The peritoneum was entered under direct vision without complication. The incision was extended with care to avoid the urinary bladder. A bladder blade was placed and a bladder flap created over the lower uterine segment which was well-developed. The uterus was then scored in a transverse manner along the lower uterine segment and taken down in the midline until the uterine cavity was entered. The incision was extended with the surgeon's finger. The vertex was grasped and delivered through the incision without difficulty. The hypopharynx and nasopharynx were suctioned. The remainder of the infant was delivered. The cord was doubly clamped and cut and the infant handed to the resuscitation team that was present. Cord blood was obtained. The placenta was delivered manually without difficulty. The uterus was curetted twice with a wet lap. The uterine incision was repaired with 2-0 Vicryl a running locking fashion, the second layer imbricating the first. The cul-de-sac and gutters were cleaned of blood and debris with a large amount of irrigation. The uterus was delivered back into the abdomen. The incision was again inspected and was hemostatic. The rectus muscles were re-approximated with 0 Vicryl in an interrupted fashion. The fascia was repaired with 0 Vicryl from lateral to midline bilaterally in a running fashion. The subcutaneous tissue was repaired with 3-0 Vicryl. The skin was repaired with 4-0 Monocryl in a subcuticular manner. Steri-Strips were applied. The wound was sterilely dressed. She tolerated the procedure well and went to the recovery room in good condition. R. Shanelle Champion MD RJTammie/EMILY /2:51 PM /2:57 PM
[2017-02-09 08:28] LABS: BATH SALTS (MDPV) UR NEG (NEG); ECSTASY (MDMA) UR NEG (NEG); HEROIN (6-ACETYLMORPHINE) UR NEG (NEG); K2 SPICE UR NEG (NEG); OBGABAPENTIN UR NEG (NEG); OBHYDROMORPHONE U NEG (NEG); OBMETHADONE UR NEG (NEG); PHENCYCLIDINE URINE NEG (NEG)
== END 2017-02-05 15:52 | disposition home or self-care (01) | DRG 765 ==
LOC: HOBED 12:34 → H2EA 15:23 → H2EB 02-02 08:58 → H2EA 02-02 23:27 → H1EA 02-03 21:34
PROVIDERS: ADMIT Obstetrics & Gynecology; ATTEND Obstetrics & Gynecology
PROC: 10D00Z1 Extraction of Products of Conception, Low, Open Approach (ICD-10-PCS; principal; 2017-02-02)
DX: O14.14 Severe pre-eclampsia complicating childbirth (principal); O41.03X0 Oligohydramnios, third trimester, not applicable or unspecified; O75.3 Other infection during labor; O36.5930 Maternal care for other known or suspected poor fetal growth, third trimester, not applicable or unspecified; O99.52 Diseases of the respiratory system complicating childbirth; J45.909 Unspecified asthma, uncomplicated; O76 Abnormality in fetal heart rate and rhythm complicating labor and delivery; O62.2 Other uterine inertia; Z37.0 Single live birth; Z3A.36 36 weeks gestation of pregnancy
CPT/HCPCS: 59025; 76816; 76819; 76820; 76821; 80053; 80076; 80307; 81001; 82570; 84156; 84550; 85025; 85027; 86850; 86900; 86901; 88307; 90715; 93971; 96360; G0481; J0131; J0690; J0702; J1200; J2405; J2590; J3010; J3475; J7120